=== PATIENT | female | born 1995 | race Two or more races ===

== ENCOUNTER 2020-04-10 17:59 | Emergency (ER) | payer MEDICAID, SELFPAY ==
--- NOTE | 2020-04-10 18:06 | ED.GENADULT ---
HPI - General Adult General Chief complaint: Upper Respiratory Infection Stated complaint: Sinus pressure Time Seen by Provider: 04/10/20 18:15 Source: patient Mode of arrival: ambulatory Limitations: no limitations History of Present Illness HPI narrative: 24-year-old female patient presents to the [facility] with complaints of sinus pressure and bilateral ear pain. Patient states that the bilateral ear pain started about 10 days ago and states that she woke up today with slight dizziness. Patient states she did take some Dramamine, Zyrtec, Benadryl and Angela for her symptoms. Patient states she has had the sinus pressure for the about the past month. Patient does have history of asthma. Patient states she is also being treated for small patch of eczema on her neck with some cream. Denies any fevers. Denies any chest pain or shortness of breath at this time. Denies any coughing. Related Data Home Medications Medication Instructions Recorded Confirmed albuterol sulfate 2 inh INHALATION Q4-6H PRN 04/10/20 04/10/20 dextroamphetamine-amphetamine 40 mg PO DAILY 04/10/20 04/10/20 [Adderall] mometasone-formoterol [Dulera] 2 inh INHALATION BID 04/10/20 04/10/20 Allergies Allergy/AdvReac Type Severity Reaction Status Date / Time wheat Allergy Swelling Verified 04/10/20 18:15 Review of Systems Review of Systems: Narrative: CONSTITUTIONAL: Denies fever, chills, or sweats. EYES: Denies visual changes, redness, or discharge. ENT: Denies rhinorrhea, positive congestion, denies sore throat, positive bilateral otalgia. CARDIOVASCULAR: Denies chest pain, palpitations, or edema. RESPIRATORY: Denies cough or dyspnea. GASTROINTESTINAL: Denies abdominal pain, nausea, vomiting, or diarrhea. GENITOURINARY: Denies dysuria or hematuria. SKIN: Denies rash or itching. MUSCULOSKELETAL: Denies back pain, joint pain, or myalgia. NEUROLOGIC: Denies headache, numbness, or weakness. Positive dizziness PSYCHIATRIC: Denies anxiety or depression. [facility] Past Medical History Medical History (Updated 04/10/20 @ 18:24 by SEFERINO Savage) Anxiety Asthma Palpitations Seizures Surgical History Surgical History (Updated 04/10/20 @ 18:07 by SEFERINO Savage) Hx of tonsillectomy Social History Social History Gender identity (if verbalized by the patient): Female Comments At the time of my signature I agree with nursing past medical history, surgical, social, and family history. There is no relevant family history pertinent to the presenting complaint. Exam Narrative: Exam Narrative: GENERAL: Well-appearing, well-nourished, and in no acute distress. HEAD: Normocephalic, atraumatic. Tenderness noted to frontal maxillary sinuses on palpation EYES: PERRLA and EOMI. ENT: Nares with erythema and edema noted bilaterally, no rhinorrhea or epistaxis. Mucous membranes moist. Posterior pharynx with no erythema, tonsil enlargement, exudates or lesions present. Bilateral TMs do have a little bit of fluid noted behind the TM. No foreign bodies or erythema noted to the canal. NECK: Supple. No lymphadenopathy CHEST: Clear to auscultation. No respiratory distress. HEART: Regular rate and rhythm. No murmur heard. Normal peripheral pulses. ABDOMEN: Soft, nontender, nondistended, normal active bowel sounds. EXTREMITIES: Normal range of motion. No edema. SKIN: Warm, dry, no rash. NEURO: Alert and oriented x4, GCS 15. Cranial nerves II through XII grossly intact. No focal neurological deficits. Normal muscle strength and tone. Normal deep tendon reflexes. Negative Babinski, normal finger to nose coordination he had normal heel to laureano glide. Speech is clear. Normal gait. Negative Romberg and no pronator drift Course Vital Signs Vital signs: Vital signs reviewed. Medical Decision Making Differential Diagnosis Differential Diagnosis: Differential diagnosis: Allergic rhinitis, chronic sinu
[2020-04-10 18:15] VITALS: BP 142/73; PULSE 92; RESP 16; TEMP 36.6; O2SAT 99
== END 2020-04-10 18:29 | disposition home or self-care (01) ==
PROVIDERS: Emergency Provider Nurse Practitioner Family
DX: J01.10 Acute frontal sinusitis, unspecified (principal); H73.893 Other specified disorders of tympanic membrane, bilateral; J45.909 Unspecified asthma, uncomplicated
CPT/HCPCS: 99213; G0463

== ENCOUNTER 2020-08-13 15:12 | Emergency (ER) | payer BC, SELFPAY ==
[2020-08-13 15:27] VITALS: BP 127/70; PULSE 86; RESP 20; TEMP 36.8; O2SAT 100
--- NOTE | 2020-08-13 15:41 | ED.URI ---
HPI - URI/Sore Throat General Chief Complaint: Upper Respiratory Infection Stated Complaint: POSSIBLE SINUS INFECTION Time Seen by Provider: 08/13/20 15:32 Source: patient and RN notes reviewed Mode of arrival: ambulatory Limitations: no limitations History of Present Illness HPI Narrative: Patient presents today complaining of 2-week history of sinus pressure, headache, postnasal drip, nasal congestion, bilateral ear pain, productive cough. Denies fever or shortness of breath. History of asthma. Patient has been taking Flonase, Mucinex, Tylenol Sinus, her albuterol and Dulera with mild relief. Currently rates her ear pain 02/21. States she has had similar intermittent symptoms since March where she was on a course of doxycycline. Denies any current wheezing, but states she feels that her symptoms may be moving down into her chest in the next couple of days. MD elicited complaint: sinus pain Related Data Home Medications Medication Instructions Recorded Confirmed albuterol sulfate 2 inh INHALATION Q4-6H PRN 04/10/20 08/13/20 dextroamphetamine-amphetamine 40 mg PO DAILY 04/10/20 08/13/20 [Adderall] mometasone-formoterol [Dulera] 2 inh INHALATION BID 04/10/20 08/13/20 Lexapro 08/13/20 Robaxin 08/13/20 etonogestrel [Nexplanon] 1 implant SUBDERMAL ONCE 08/13/20 08/13/20 Allergies Allergy/AdvReac Type Severity Reaction Status Date / Time wheat Allergy Swelling Verified 08/13/20 15:33 Review of Systems Review of Systems: Narrative: CONSTITUTIONAL: Denies body aches, fever, chills, or sweats. EYES: Denies visual changes, redness, or discharge. ENT: Denies rhinorrhea, sore throat. + Sinus pressure, nasal congestion, postnasal drip, bilateral ear pain CARDIOVASCULAR: Denies chest pain, palpitations, or edema. RESPIRATORY: Denies dyspnea.+ Cough GASTROINTESTINAL: Denies abdominal pain, nausea, vomiting, or diarrhea. GENITOURINARY: Denies dysuria or hematuria. SKIN: Denies rash, itching, or wounds. MUSCULOSKELETAL: Denies back pain, joint pain, or myalgia. NEUROLOGIC: Denies numbness, tingling, or weakness. + Frontal headache PSYCH: Denies depression or anxiety. PMFSH Past Medical History Medical History (Updated 08/13/20 @ 15:49 by Flkaita Snowden, SEFERINO, ) Anxiety Asthma Palpitations Seizures Surgical History Surgical History (Updated 04/10/20 @ 18:07 by SEFERINO Savage) Hx of tonsillectomy Social History Social History Gender identity (if verbalized by the patient): Female Comments At time of signature, I have reviewed and agree with nursing past medical, surgical, social and family history unless otherwise noted. Please see nursing chart for further information. There is no relevant family history pertinent to the presenting complaint Exam Narrative: Exam Narrative: GENERAL: Well-appearing, well-nourished, and in no acute distress. HEAD: Normocephalic, atraumatic. EYES: EOMI. No redness or drainage. Conjunctivae normal. ENT: Mucous membranes pink and moist. Nares congested. No rhinorrhea. Bilateral swollen and erythematous nasal turbinates, left greater than right. TMs normal bilaterally. Throat normal. Uvula midline. Left frontal and bilateral maxillary sinus tenderness. NECK: Normal AROM. Supple. Left posterior cervical chain tenderness. CHEST: No respiratory distress. Clear to auscultation. HEART: Regular rate and rhythm. No murmur appreciated. Normal peripheral pulses. EXTREMITIES: Normal range of motion. No edema. SKIN: Warm, dry, no rash. Capillary refill normal. Normal skin turgor. NEURO: No focal deficits. Alert and oriented x3. Gait steady. PSYCH: Normal affect. No signs of depression or anxiety. Course Vital Signs Vital signs: Vital Signs Temperature 98.2 F 08/13/20 15:27 Pulse Rate 86 08/13/20 15:27 Respiratory Rate 20 08/13/20 15:27 Blood Pressure 127/70 08/13/20 15:27 Pulse Oximetry 100
== END 2020-08-13 15:52 | disposition home or self-care (01) ==
PROVIDERS: Emergency Provider Nurse Practitioner
DX: J01.91 Acute recurrent sinusitis, unspecified (principal); F41.9 Anxiety disorder, unspecified; J45.909 Unspecified asthma, uncomplicated; F90.9 Attention-deficit hyperactivity disorder, unspecified type
CPT/HCPCS: 99213; G0463

== ENCOUNTER → 2021-07-17 13:37 | Outpatient (CLI) | payer BC, SELFPAY ==
--- NOTE | ~2021-07-17 | XR_ITS ---
EXAMINATION: XR hand RT 2V INDICATION: Right knee pain TECHNIQUE: Two views of the right hand are obtained. COMPARISON: None available FINDINGS: There is no fracture, dislocation, or subluxation. The bones, soft tissues, and joint space s are normal. IMPRESSION: 1. No acute osseous abnormality. Reviewed, dictated and finalized at location B.
--- NOTE | ~2021-07-17 | US_ITS ---
EXAMINATION: US venous doppler UE RT DATE: 07/17/2021 14:22 INDICATION: Right arm pain and swelling. TECHNIQUE: Grayscale images without and with compression and Doppler images of the right upper extrem ity veins were obtained. COMPARISON: None. FINDINGS: The right internal jugular vein, subclavian vein, axillary vein, brachial vein, basilic vein, cephali c vein, radial vein, and ulnar vein are patent. IMPRESSION: 1. Patent right upper extremity veins. No evidence of venous thrombosis. Reviewed, dictated and finalized at location A.
== END ==
PROVIDERS: PCP Nurse Practitioner Family; Visit Provider Nurse Practitioner Family
DX: M79.601 Pain in right arm (principal); M79.89 Other specified soft tissue disorders
CPT/HCPCS: 73120; 93971

== ENCOUNTER 2022-09-30 13:21 | Outpatient (CLI) | payer BC, SELFPAY ==
--- NOTE | ~2022-09-30 | XR_ITS ---
EXAMINATION: XR finger 5th LT min 2V DATE: 09/30/2022 13:44 INDICATION: Left hand fifth digit injury and pain. TECHNIQUE: 4 views of left hand fifth digit were obtained. COMPARISON: None. FINDINGS: Bone alignment is normal. No fracture. Joint spaces are well maintained. IMPRESSION: 1. No fracture. Reviewed, dictated and finalized at location A. CTOR LOSS PREVENTION IMPRESSION: 1. No fracture.
== END 2022-09-30 13:22 ==
LOC: MICIMG 13:23
PROVIDERS: PCP Nurse Practitioner Family; Visit Provider Nurse Practitioner Family
DX: M79.645 Pain in left finger(s) (principal)
CPT/HCPCS: 73140

== ENCOUNTER 2024-01-06 08:01 | Emergency (ER) | payer BC, SELFPAY ==
--- NOTE | ~2024-01-06 | XR_ITS ---
EXAMINATION: XR abdomen/kub 1V DATE: 01/06/2024 15:13 INDICATION: Abdominal pain. TECHNIQUE: A supine view of the abdomen on 2 radiographs was obtained. COMPARISON: CT abdomen pelvis 01/06/2024 FINDINGS: There are no dilated loops of bowel. There is a moderate volume of stool in the colon. Ther e is contrast in the renal collecting system. There is a persistent left-sided contrast nephrogram. T here is mild left hydronephrosis and hydroureter. IMPRESSION: 1. Mild left hydronephrosis and hydroureter. Reviewed, dictated and finalized at location E.
--- NOTE | ~2024-01-06 | CT_ITS ---
EXAMINATION: CT abdomen pelvis w con DATE: 01/06/2024 12:57 INDICATION: Abdominal pain TECHNIQUE: Computed tomography (CT) of the abdomen and pelvis was performed with 100 cc Omnipaque 350 intravenous contrast. The dose-length product was 527.98 mGy-cm. Automated exposure control and iter ative reconstruction technique were employed. COMPARISON: None. FINDINGS: Lung bases unremarkable. Heart size normal. No significant pleural or pericardial effusion. No thoracic lymphadenopathy. No evidence for hernia. Fatty infiltration of the liver. The spleen, adrenal glands, pancreas and right kidney are unremarkab le. Gallbladder is present. There is a 3 mm left UVJ stone with mild hydronephrosis and perinephric e juanito. No free air or free fluid. No abnormal pelvic masses or fluid collections. IMPRESSION: 1. Left UVJ stone measuring 3 mm with left hydroureteronephrosis and perinephric edema. Reviewed, dictated and finalized at location B. IMPRESSION: 1. Left UVJ stone measuring 3 mm with left hydroureteronephrosis and perinephri c edema.
[2024-01-06 08:05] VITALS: BP 141/91; PULSE 90; RESP 16; TEMP 36.8; O2SAT 100
[2024-01-06 08:24] LABS: Basophils Percent Auto 0.3 % (0.2-1.2); Eosinophils Percent Auto 0.2 % (0-4.4); Hematocrit 37.9 % (37.0-47.0); Hemoglobin 13.1 g/dL (12.0-15.0); Immature Granulocyte Absolute 0.04 K/mm3 (0.00-0.031); Immature Granulocyte Percent A 0.4 % (0-0.5); Lymphocytes Absolute Auto 2.48 K/mm3 (0.9-3.2); Lymphocytes Percent Auto 24.8 % (18.3-44.2); Mean Corpuscular HGB Conc 34.6 g/dl (32-36); Mean Corpuscular Hemoglobin 29.4 pg (26-34); Mean Platelet Volume 9.2 fl (7.4-10.4); Monocytes Absolute Auto 0.6 K/mm3 (0.1-0.6); Monocytes Percent Auto 5.9 % (2.6-8.5); Neutrophils Absolute Auto 6.8 K/mm3 (1.3-6.7); Neutrophils Percent Auto 68.4 % (45.5-73.1); Platelet Count Result 367 k/mm3 (150-375); Red Blood Count 4.46 M/mm3 (4.2-5.4); Red Cell Distribution Width 13.3 % (11.5-14.5)
[2024-01-06 08:35] LABS: Appearance Urine Turbid (Clear); Bacteria Urine 2+ /hpf; Bilirubin Urine Negative (Negative); Blood Urine Non-Hemolyzed Trace (Negative); Color Urine Yellow (Yellow); Glucose Urine UA Negative (Negative); Ketones Urine Negative (Negative); Leukocyte Esterase Ur Trace LEU/UL (Negative); Nitrate Urine Negative (Negative); Non Pathogenic Casts 0-2; Protein Urine Trace mg/dL (Negative); Specific Grav Ur 1.019 (1.001-1.035); Squamous Epithelial Cell Urine Few /hpf (Few); pH Urine 8.5 (5.0-9.0)
[2024-01-06 08:38] LABS: Alanine Aminotransferase 25 U/L (6-35); Albumin Level 4.7 g/dL (3.5-5.1); Alkaline Phosphatase 85 U/L (38-126); Anion Gap 9 mmol/L (4-12); Aspartate Amino Transferase 30 U/L (14-36); Bilirubin,Total 0.6 mg/dL (0.2-1.3); Blood Urea Nitrogen 12 mg/dL (7-17); Calcium 9.4 mg/dL (8.4-10.2); Carbon Dioxide 22 mmol/L (22-30); Chloride 106 mmol/L (98-107); Estimated CRCL calculation 106 ml/min; Estimated Glomerular Filt Rate > 60; Glucose 114 mg/dL (65-110); Lipase 79 U/L (23-300); Potassium 4.2 mmol/L (3.4-5.0); Sodium 137 mmol/L (137-145)
[2024-01-06 09:03] LABS: Add Urine Microscopic? YES
[2024-01-06 11:48] VITALS: BP 146/96; PULSE 63; RESP 22; O2SAT 100
--- NOTE | 2024-01-06 11:58 | ED.ABDPAIN ---
HPI - Abdominal Pain General Chief Complaint: Abdominal Pain Stated Complaint: abd pain Time Seen by Provider: 01/06/24 11:57 History of Present Illness HPI narrative: Patient is a 28-year-old female here with abdominal pain. She states that it woke up from sleep around 330 in the morning, it is sharp, severe, cramping. She notes that it is located in the upper abdomen and on the left side as well as in the left flank. She has had some associated nausea and vomiting. Her last bowel movement was yesterday which was normal in consistency in size. Her she does note some increased urinary frequency, denies vaginal discharge, vaginal bleeding, dysuria. No prior abdominal surgeries. She notes some subjective chills, no fever. She has had a mild cough since her vomiting began this morning. She has not taken anything for the pain. She did recently travel to [place], denies any known exposures. Related Data Home Medications Medication Instructions Recorded Confirmed etonogestrel 68 mg subdermal 1 implant subdermal ONCE 08/13/20 10/05/23 implant (Nexplanon) adalimumab 40 mg/0.8 mL See Rx Instructions subcut .COMPLEX 12/06/21 10/05/23 subcutaneous syringe kit (Humira) famotidine 40 mg tablet (Pepcid) 40 mg PO BID PRN 10/05/23 10/05/23 Allergies Allergy/AdvReac Type Severity Reaction Status Date / Time wheat Allergy Swelling Verified 01/06/24 08:01 Review of Systems Review of Systems: All systems reviewed & are unremarkable except as noted in HPI and below PMFSH Past Medical History Medical History (Updated 01/06/24 @ 15:49 by Yamileth Jordan MD) ACL tear Anxiety Asthma BMI 31.0-31.9,adult BMI 33.0-33.9,adult BMI 35.0-35.9,adult BMI 38.0-38.9,adult BMI 40.0-44.9, adult Hidradenitis suppurativa Meniscus degeneration Palpitations Seizures Tonsillectomy planned Surgical History Surgical History Hx of tonsillectomy S/P ACL repair S/P meniscectomy x2 Family History Family History Father Diverticulitis Mother No problems noted. Sibling Depression Grandparent Acute myocardial infarction Other Alcoholism Cervical cancer Diabetes mellitus Lung cancer Malignant neoplasm of prostate Thyroid disorder Social History Social History Smoking status: Never smoker Second hand tobacco smoke exposure: No Alcohol intake: current Substance use: former Substance use type: marijuana Lack of Transportation: YES Lack of Food: Never True Current Housing: I Have Housing Concerned About Future Housing: No Difficulty Paying Gas/Electric Bills: No Difficulty Paying for Meds: No Currently Unemployed: No Education: Master's Degree or Higher Difficulty w/ Childcare or Family Care: No Living arrangements: with family Occupation/Education: occupation 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 Gender identity (if verbalized by the patient): Female Exam Narrative: GENERAL: Well-appearing, well-nourished, and appears to be in pain, writhing around on the bed in pain HEAD: Normocephalic, atraumatic. EYES: PERRLA and EOMI. ENT: Nares clear. Mucous membranes moist. NECK: Supple. CHEST: Clear to auscultation. No respiratory distress. HEART: Regular rate and rhythm. Normal peripheral pulses. ABDOMEN: Soft, tenderness in the epigastrium, no rebound or guarding, + CVA tenderness on left, no CVA tenderness on right. EXTREMITIES: Normal range of motion. No edema. SKIN: Warm, dry, no rash. NEURO: No focal deficits. Alert and oriented x3. PSYCH: Normal mood and affect. Course Course Emergency Course: Chart review performed. Patient here with abdominal pain since 0330, associated with nausea and vomiting. Triage vitals show borderline HTN, otherwise normal
[2024-01-06 12:13] LABS: Pregnancy On Board Control Positive; Urine Pregnancy Test Negative
[2024-01-06] MEDS: ONDANSETRON INJ 4 MG/2 ML VIAL IV PUSH (12:44)
[2024-01-06] MEDS: PANTOPRAZOLE SODIUM IV 40 MG VIAL IV PUSH (12:44)
[2024-01-06] MEDS: MORPHINE SULFATE (*CRX) 4 MG/ML INJ IV PUSH ×2 (12:45→13:40)
[2024-01-06] MEDS: LACTATED RINGERS 1,000 ML 999 ML IV CONT (13:16)
[2024-01-06 13:53] LABS: Influenza A QL RT-PCR Negative (Negative); Influenza B QL RT-PCR Negative (Negative); RSV RNA, RT-PCR Negative (Negative); SARS-CoV-2 RNA PCR Negative (Negative)
[2024-01-06] MEDS: KETOROLAC 15 MG/ML VIAL (*BKC) IV PUSH (14:05)
[2024-01-06 16:26] VITALS: BP 137/72; PULSE 87; RESP 18; O2SAT 98
== END 2024-01-06 16:29 | disposition home or self-care (01) ==
PROVIDERS: Student in an Organized Health Care Education/Training Program; Emergency Provider Student in an Organized Health Care Education/Training Program; PCP Family Medicine
DX: N20.1 Calculus of ureter (principal); Z20.822 Contact with and (suspected) exposure to COVID-19
CPT/HCPCS: 36415; 74018; 74177; 80053; 81001; 81025; 83690; 85025; 87086; 87088; 87637; 96361; 96365; 96375; 96376; 99284; C9113; J0696; J1885; J2270; J2405; J7120; Q9967

== ENCOUNTER 2024-01-08 00:44 | Day surgery (SDC) | payer BC, SELFPAY ==
--- NOTE | 2024-01-07 13:02 | PC.NURSE ---
Report to the Outpatient Waiting Room, entrance under the green pavilion located off [facility], at time _0630 on date ___01/08/24____. Planned Procedure Time: ___829 . Time changes happen often and if your time is changed the preop area will call you the afternoon before. - You and your visitor will be asked to self-screen and do not enter if you have any COVID symptoms. - A mask is optional within the hospital at this time. Patients may have clear liquids (water, carbonated beverages, clear teas, apple juice) until 3 hours prior to surgery( 5:30 AM) with a maximum of 20 ounces. - No food from midnight until time of surgery - Infants may have breast milk until 4 hours before surgery, formula 6 hours prior to surgery. - Children will be allowed to drink immediately following surgery. If applicable, please bring a bottle or sippy cup to assist with drinking. Juice, water, soda, and popsicles are readily available. For infants on formula, please bring formula the day of surgery. Pacifiers are allowed. Take the following medications with a SIP of water the morning of surgery: __CEPHALEXIN, HYDROCODONE IF NEEDED FOR PAIN,HYDROXYZINE DO NOT STOP ANY OF YOUR OTHER PRESCRIPTION MEDICATIONS PRIOR TO SURGERY ?EXCEPT THE FOLLOWING Medications to discontinue per physician __SURGERY TOMORROW Date to take last dose Please no make-up, nail portuguese, hairspray, perfume, deodorant, or body powder the day of surgery. No jewelry (including any body piercings) or valuables the day of surgery, leave them at home. Please take a shower or bath the night before, or the morning of, surgery with an antibacterial soap. Wear comfortable, loose fitting clothing. Children are encouraged to wear pajamas. - Jewelry must be removed prior to entering the operating room. Rings and piercings that are not removed may be cut off. - The hospital will not accept responsibility for valuables. - Please leave all valuables, including medications, at home the day of surgery. If you are going home after surgery, a licensed batch mixing truck driver must drive you home. - NO public transportation without another adult if you receive anesthesia. - We recommend that an adult stay with you for 24 hours following discharge. - We also recommend that you do not drive, make important decision, drink alcoholic beverages, or take any drugs that were not prescribed by your health care provider for at least 24 hours after your discharge time. For Pediatric surgeries, we recommend two adults accompany the child home. Follow any additional instructions given to you from your surgeon. If you or anyone in your household have experienced Covid symptoms in the past week, please notify your surgeon or the nurse liaison at the phone number below for possible testing. Telephone instructions given to PT and asked if any additional questions and then verbalized understanding. Patient advised to call surgeon office or pre surgery nurse liaison [phone] if any additional questions.
[2024-01-07 13:13] VITALS: BMI 29.9
[2024-01-08] VITALS (8 sets, daily range): BP systolic 97–113; BP diastolic 47–75; PULSE 57–75; RESP 14–16; TEMP 36.4–36.5; O2SAT 100
--- NOTE | ~2024-01-08 | XR_ITS ---
EXAMINATION: XR retrograde pyelo w/stent LT DATE: 01/08/2024 11:03 INDICATION: Left internal ureteral stent placement TECHNIQUE: Fluoroscopic images from a left internal ureteral stent placement are submitted for review . 20 seconds of fluoroscopy time. FINDINGS: There is a left double-J internal ureteral stent projecting in expected position, with proximal [place] loop at the level of the renal pelvis and distal loop in the pelvis within the bladder lumen. IMPRESSION: 1. Left internal ureteral stent placement. Please refer to real-time procedural findings for detail s. Reviewed, dictated and finalized at location B. IMPRESSION: 1. Left internal ureteral stent placement. Please refer to real-time procedur al findings for details.
--- NOTE | 2024-01-08 07:35 | WPDHPUPDATE1 ---
History and Physical Update Update Date/Time: 01/08/24 07:35 History and Physical has been reviewed, including an updated exam of the patient. There are NO changes in the patient's condition. Risks, benefits, and alternatives have been discussed and questions answered. Patient agrees to proceed with procedure. Proceed with cystoscopy, left retrograde, left ureteroscopy with stone extraction , possible laser, stent placement
--- NOTE | 2024-01-08 07:52 | WPDANESEPPF ---
Anes - Initial Pre Proc Eval Procedure: Operation Date: 01/08/24 08:30 Proposed Procedures p Cystoscopy, Left Ureteroscopy, Left Stone Extraction, Possible Holmium Laser Lithotripsy, Possible Retrograde Pyelogram, Possible Left Stent Placement - Hong Andres MD Date/Time: 01/08/24 07:52 Surgeon: Hong Andres MD Pre Op Diagnosis: Lt U [place] Stone Patient Data Age: 28 Gender: F Height: 1.65 m Weight: 85.9 kg Last Vital Signs Temp 97.6 F 01/08/24 07:22 Pulse 75 01/08/24 07:22 Resp 16 01/08/24 07:22 BP 113/75 01/08/24 07:22 Pulse Ox 100 01/08/24 07:22 O2 Del Method Room Air 01/08/24 07:22 Allergies Allergy/AdvReac Type Severity Reaction Status Date / Time wheat Allergy Swelling Verified 01/07/24 12:53 Home Medications Medication Instructions Recorded Confirmed Type etonogestrel 68 mg subdermal 1 implant subdermal ONCE 08/13/20 01/07/24 History implant (Nexplanon) adalimumab 40 mg/0.8 mL See Rx Instructions subcut .COMPLEX 12/06/21 01/07/24 History subcutaneous syringe kit (Humira) cetirizine 5 mg-pseudoephedrine ER 1 tablet PO Q12H PRN allergy 10/24/22 01/07/24 Rx 120 mg tablet,extended symptoms #60 tabs release,12hr (Zyrtec-D) famotidine 40 mg tablet (Pepcid) 40 mg PO BID PRN Heartburn 10/05/23 01/07/24 History methocarbamol 500 mg tablet 500 mg PO QHS PRN muscle spasm #30 10/05/23 01/07/24 Rx tabs montelukast 10 mg tablet See Rx Instructions .Route 10/05/23 01/07/24 Rx .COMPLEX #90 tabs hydroxyzine HCl 25 mg tablet 25 mg PO TID PRN anxiety #60 tabs 12/30/23 01/07/24 Rx Vyvanse 60 mg capsule 60 mg PO DAILY #30 caps 01/05/24 01/07/24 Rx (lisdexamfetamine) cephalexin 500 mg capsule 500 mg PO Q6H 5 days #20 caps 01/06/24 01/07/24 Rx hydrocodone 5 mg-acetaminophen 325 1 tablet PO Q6H PRN pain 5 days 01/06/24 01/07/24 Rx mg tablet #20 tabs ondansetron 4 mg disintegrating 4 mg PO Q6H PRN nausea and 01/06/24 01/07/24 Rx tablet vomiting #20 tabs tamsulosin 0.4 mg capsule (Flomax) 0.4 mg PO DAILY 4 days #4 caps 01/06/24 01/07/24 Rx meloxicam 15 mg tablet 15 mg PO DAILY 01/07/24 01/07/24 History semaglutide (weight loss) 2.4 2.4 mg subcut WEEKLY WEIGHT LOSS 01/07/24 01/07/24 History mg/0.75 mL subcutaneous pen injector (Aquilinovy) tacrolimus 0.1 % topical ointment 0.1 applic topical PRN PRN Itching 01/07/24 01/07/24 History Patient hx anesthesia problems: none Family hx anesthesia problems: none Results Review: All pre-operative results and documents have been reviewed as part of the pre-operative evaluation. [facility] Past Medical History Medical History (Updated 01/07/24 @ 00:00 by Jb May) ACL tear Anxiety Asthma BMI 31.0-31.9,adult BMI 33.0-33.9,adult BMI 35.0-35.9,adult BMI 38.0-38.9,adult BMI 40.0-44.9, adult Hidradenitis suppurativa Meniscus degeneration Palpitations Seizures Tonsillectomy planned Surgical History Surgical History Hx of tonsillectomy S/P ACL repair S/P meniscectomy x2 Family History Family History Father Diverticulitis Mother No problems noted. Sibling Depression Grandparent Acute myocardial infarction Other Alcoholism Cervical cancer Diabetes mellitus Lung cancer Malignant neoplasm of prostate Thyroid disorder Social History Social History Smoking status: Never smoker Second hand tobacco smoke exposure: No Alcohol intake: current Drinks per week: 1 Substance use: former Substance use type: marijuana Lack of Transportation: YES Lack of Food: Never True Current Housing: I Have Housing Concerned About Future Housing: No Difficulty Paying Gas/Electric Bills: No Difficulty Paying for Meds: No Currently Unemployed: No Education: Master's Degree or Higher Diff
[2024-01-08] MEDS: LACTATED RINGERS 1,000 ML 30 ML IV CONT ×2 (08:16→11:07)
[2024-01-08] MEDS: fentaNYL CITRATE INJ (*CRX) 100 MCG/2 ML VIAL 50 MCG IV PUSH (09:59)
[2024-01-08] MEDS: ceFAZolin 2 GM/D5W 50 ML 2 GM/50 ML BAG IVPB (10:30)
[2024-01-08] MEDS: LIDOCAINE HCL 2% GEL UROJET 10 ML PKG MUCOUS MEM (10:36)
--- NOTE | 2024-01-08 11:03 | W.PM.PROC2 ---
Procedure Note - Detailed Date of Procedure 01/08/24 Pre-op Diagnosis Left ureteral calculus -3 mm Post-op Diagnosis Same Procedure Performed cystoscopy, left retrograde pyelogram, left ureteroscopy with stone extraction, left ureteral stent placement 4.8 Monegasque contour Surgeon Hong Andres MD Anesthesia General Description of Procedure patient was taken to the operative suite correctly identified. Once anesthesia was obtained she was placed in dorsal lithotomy position and prepped and draped usual sterile fashion. Twenty-two Monegasque scope was inserted the bladder. The left ureteral orifice was cannulated with a guidewire. I dilated with an 8/10 dilator. Rigid ureteral scope was inserted. There were no stones noted in the distal or mid ureter. I exchanged this out for a flexible ureteral scope and traced all the way back to the kidney. Again no ureteral stones were visualized. It was presumed that that stone flushed back into the kidney. Calices were examined and a 3 mm stone was visualized. This was grasped using a 0 degree basket. It was sent for analysis. Pyelogram was performed to confirm placement of the stent. 4.8 Monegasque contour stent was then placed with the proximal end coiled in the left renal pelvis the distal in the bladder. Bladder was drained. 2% viscous lidocaine was inserted into the urethra patient is taken recovery stable condition. This completes dictation. Please send a copy of op note to office. Estimated Blood Loss 0 Drains Yes Packing No Pathology Yes Complications No immediate complications Condition Stable Disposition PACU
[2024-01-08] MEDS: oxyCODONE HCL (*CRX) 5 MG TAB IR PO (12:18)
--- NOTE | 2024-01-28 13:03 | PM.IMHP ---
H&P: HPI History of Present Illness Date/Time: 01/28/24 13:03 Chief Complaint: 3 mm obstructing left UVJ calculus Narrative: 28-year-old female who presented with left renal colic and found to have a 3 mm left UVJ stone. Will proceed with ureteroscopy stone extraction today. Review of Systems Review of Systems: All systems reviewed & are unremarkable except as noted in HPI and below PMFSH Past Medical History Medical History ACL tear Anxiety Asthma BMI 31.0-31.9,adult BMI 33.0-33.9,adult BMI 35.0-35.9,adult BMI 38.0-38.9,adult BMI 40.0-44.9, adult Hidradenitis suppurativa Meniscus degeneration Palpitations Seizures Tonsillectomy planned Surgical History Surgical History Hx of tonsillectomy S/P ACL repair S/P meniscectomy x2 Family History Family History Father Diverticulitis Mother No problems noted. Sibling Depression Grandparent Acute myocardial infarction Other Alcoholism Cervical cancer Diabetes mellitus Lung cancer Malignant neoplasm of prostate Thyroid disorder Social History Social History Smoking status: Never smoker Second hand tobacco smoke exposure: No Alcohol intake: current Drinks per week: 1 Substance use: former Substance use type: marijuana Lack of Transportation: YES Lack of Food: Never True Current Housing: I Have Housing Concerned About Future Housing: No Difficulty Paying Gas/Electric Bills: No Difficulty Paying for Meds: No Currently Unemployed: No Education: Master's Degree or Higher Difficulty w/ Childcare or Family Care: No Living arrangements: with family Occupation/Education: occupation 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 Gender identity (if verbalized by the patient): Female Spiritual care concerns: No Meds Home Medications and Allergies Home Medications Medication Instructions Recorded Confirmed Type etonogestrel 68 mg subdermal 1 implant subdermal ONCE 08/13/20 01/07/24 History implant (Nexplanon) adalimumab 40 mg/0.8 mL See Rx Instructions subcut .COMPLEX 12/06/21 01/07/24 History subcutaneous syringe kit (Humira) cetirizine 5 mg-pseudoephedrine ER 1 tablet PO Q12H PRN allergy 10/24/22 01/07/24 Rx 120 mg tablet,extended symptoms #60 tabs release,12hr (Zyrtec-D) famotidine 40 mg tablet (Pepcid) 40 mg PO BID PRN Heartburn 10/05/23 01/07/24 History methocarbamol 500 mg tablet 500 mg PO QHS PRN muscle spasm #30 10/05/23 01/07/24 Rx tabs montelukast 10 mg tablet See Rx Instructions .Route 10/05/23 01/07/24 Rx .COMPLEX #90 tabs Vyvanse 60 mg capsule 60 mg PO DAILY #30 caps 01/05/24 01/07/24 Rx (lisdexamfetamine) cephalexin 500 mg capsule 500 mg PO Q6H 5 days #20 caps 01/06/24 01/07/24 Rx ondansetron 4 mg disintegrating 4 mg PO Q6H PRN nausea and 01/06/24 01/07/24 Rx tablet vomiting #20 tabs tamsulosin 0.4 mg capsule (Flomax) 0.4 mg PO DAILY 4 days #4 caps 01/06/24 01/07/24 Rx meloxicam 15 mg tablet 15 mg PO DAILY 01/07/24 01/07/24 History tacrolimus 0.1 % topical ointment 0.1 applic topical PRN PRN Itching 01/07/24 01/07/24 History hydrocodone 5 mg-acetaminophen 325 1 tablet PO Q6H PRN pain 5 days 01/12/24 Rx mg tablet #20 tabs oxybutynin chloride 5 mg tablet 5 mg PO TID PRN bladder spasms #90 01/12/24 Rx tabs hydroxyzine HCl 25 mg tablet See Rx Instructions .Route 01/14/24 Rx .COMPLEX #60 tabs semaglutide (weight loss) 2.4 2.4 mg (0.75 mL) subcut WEEKLY 01/22/24 Rx mg/0.75 mL subcutaneous pen WEIGHT LOSS #3 mL injector (Niko) Allergies Allergy/AdvReac Type Severity Reaction Status Date / Time wheat Allergy Swelling Verified 01/07/24 12:53 Exam Const:
== END 2024-01-08 13:10 | disposition home or self-care (01) ==
PROVIDERS: PCP Family Medicine; Visit Provider Urology
PROC: (CPT 52352; principal; 2024-01-08 08:30)
DX: N20.1 Calculus of ureter (principal); J45.909 Unspecified asthma, uncomplicated; G40.909 Epilepsy, unspecified, not intractable, without status epilepticus; F41.9 Anxiety disorder, unspecified; E66.9 Obesity, unspecified; Z68.31 Body mass index [BMI] 31.0-31.9, adult; Z79.620 Long term (current) use of immunosuppressive biologic; Z79.891 Long term (current) use of opiate analgesic; Z79.85 Long-term (current) use of injectable non-insulin antidiabetic drugs; Z79.621 Long term (current) use of calcineurin inhibitor
CPT/HCPCS: 52332; 52352; 74420; 82365; 88300; A9270; C1769; C2617; J0690; J1100; J1200; J2250; J2371; J2405; J2704; J3010; J7120; Q9966